=== PATIENT | female | born 1950 | race Caucasian/White ===

== ENCOUNTER → 2016-03-10 | Day surgery (SDC) | payer MEDICARE ==
[~2016-03-10] VITALS: Ht 160 cm; Wt 95.3 kg
[~2016-03-10] MED LIST: AMLODIPINE BESYL5 MG PO; CENTRUM1 TAB PO; CO Q-1050 MG PO; DIOVAN HCT 12.51 TA6 PO; FISH OIL500 MG PO; Lopressor25 MG PO; METFORMIN500 MG PO; OMEPRAZOLE D/R20 MG PO; SYMBICORT1 AER INH; VALSARTAN160 MG PO
--- NOTE | ~2016-03-10 | O ---
[place], [place] OPERATIVE NOTE NAME: ARIELLE MCGOVERN UNIT #: [id number] ROOM: DOCTOR: SATHYA VERDUGO MD BIRTHDATE: [birth year] DOS: GASTROENDOSCOPIC REPORT HISTORY OF PRESENT ILLNESS: The patient is 66-year-old who has presented with chief complaint of epigastric distress, dyspepsia, history of H. pylori positivity, continuing with dyspepsia, despite the fact that she is on omeprazole 20 mg a day. PAST MEDICAL HISTORY: Associated with diabetes mellitus, hypertension, COPD. She was H. pylori positive. She has been treated in the past with clarithromycin, amoxicillin, and Prilosec. PROCEDURE: Today's procedure part of investigation is panendoscopy plus biopsy. PREMEDICATION: Versed and Diprivan. SCOPE: Olympus forward viewing gastroscope Q10 video. REPORT: After putting the patient in the left lateral position and after application of lubricant to the scope, the scope was introduced. Thereafter, under direct visualization, I advanced through the length of esophagus without difficulty. Distal esophagitis, distal esophageal ulcer, and small hiatal hernia. Gastric pouch was entered. Multiple antral erosions identified, photographed, biopsied. Duodenal bulb, second and third part within normal limits. The patient extubated, tolerated procedure well. IMPRESSION: Multi-antral erosion, distal esophageal ulcer, hiatal hernia. PLAN AND DISCUSSION: This patient with past history of H. Pylori, status post clarithromycin, amoxicillin, and PPI therapy, waiting to see if there is repopulation of the H. Pylori. Otherwise if negative, we are going to increase the Prilosec to 20 mg b.i.d. If positive, we are going to modify to other regimen for H. pylori management. At the present time, H. pylori results pending. Thank you very much indeed for your kind referral. [place], [place] OPERATIVE NOTE NAME: ARIELLE MCGOVERN UNIT #: [id number] ROOM: DOCTOR: SATHYA VERDUGO MD BIRTHDATE: [birth year] SATHYA VERDUGO MD CM:OPRECORD:OPERATIVE NOTE [id number] SISSY VERDUGO MD 03/10/16 1149 interface
[2016-03-10 08:13] VITALS: BP 114/59
[2016-03-10 09:00] VITALS: BP 137/81
[2016-03-10 09:15] VITALS: BP 139/77
[2016-03-10 09:30] VITALS: BP 140/83
== END | disposition home or self-care (01) ==
LOC: SDC 03-08 09:30
DX: K29.50 Unspecified chronic gastritis without bleeding (principal); K22.10 Ulcer of esophagus without bleeding; K44.9 Diaphragmatic hernia without obstruction or gangrene; E11.9 Type 2 diabetes mellitus without complications; I10 Essential (primary) hypertension; J44.9 Chronic obstructive pulmonary disease, unspecified; Z83.3 Family history of diabetes mellitus; Z82.3 Family history of stroke

== ENCOUNTER → 2018-03-29 | Day surgery (SDC) | payer MEDICARE ==
[~2018-03-29] VITALS: Ht 160 cm; Wt 93.0 kg
[~2018-03-29] MED LIST changes: +HYOSCYAMINE0.125 MG PO
--- NOTE | ~2018-03-29 | O ---
[place], [place] OPERATIVE NOTE NAME: ARIELLE MCGOVERN UNIT #: [id number] ROOM: DOCTOR: SATHYA VERDUGO MD BIRTHDATE: [birth year] DOS: 03/29/2018 GASTROENDOSCOPIC REPORT HISTORY OF PRESENT ILLNESS: A 68-year-old patient who is presented with chief complaint of change in bowel habit, constipation or diarrhea, gassy distress. ALLERGIES: AMOXICILLIN AND BIAXIN. FAMILY HISTORY: Noncontributory. PAST SURGICAL HISTORY: D and C. SOCIAL HISTORY: Nonsmoker, nonalcohol consumer. PROCEDURE: Today's procedure part of investigation is colonoscopy plus polypectomy, piecemeal at hepatic flexure x 2. PREMEDICATION: Propofol. SCOPE: Olympus forwarding colonoscope 10L video. REPORT: After putting the patient in left lateral position and application of lubricant to the scope, the scope was introduced; thereafter under direct visualization, I advanced through the length of colon without difficulty. Hepatic flexure area was approached. Two sessile small polypoid lesion with piecemeal polypectomy removed. Base of the cecum explored, appendiceal orifice identified, ileocecal valve was defined. Scope was gradually withdrawn from ascending, transverse, descending colon. The patient extubated, tolerated the procedure well. IMPRESSION: Sessile colonic polyp at hepatic flexure, status post 2 piecemeal polypectomies. PLAN ON DISCUSSION: This patient's symptomatology of change in bowel habit, diarrhea, constipation is related to irritable bowel syndrome, hyoscyamine. Therefore, 0.125 mg 1 every day along with high fiber would be tried and clinical reassessment as outpatient. Thank you very much indeed for your kind referral. [place], [place] OPERATIVE NOTE NAME: JC MCGOVERNAINE UNIT #: [id number] ROOM: DOCTOR: SATHYA VERDUGO MD BIRTHDATE: [birth year] SATHYA VERDUGO MD CM:OPRECORD:OPERATIVE NOTE [id number] SATHYA VERDUGO MD 03/30/18 1535 interface
[2018-03-29 07:40] VITALS: BP 128/70
[2018-03-29 09:00] VITALS: BP 111/56
[2018-03-29 09:15] VITALS: BP 111/64
[2018-03-29 09:30] VITALS: BP 125/69
[2018-03-29 09:38] VITALS: BP 108/55
== END | disposition home or self-care (01) ==
LOC: SDC 03-02 08:00
DX: D12.3 Benign neoplasm of transverse colon (principal); I10 Essential (primary) hypertension; J44.9 Chronic obstructive pulmonary disease, unspecified; E11.9 Type 2 diabetes mellitus without complications; M41.9 Scoliosis, unspecified; E66.01 Morbid (severe) obesity due to excess calories; Z68.36 Body mass index [BMI] 36.0-36.9, adult; Z98.890 Other specified postprocedural states; Z88.1 Allergy status to other antibiotic agents; Z79.899 Other long term (current) drug therapy; Z83.3 Family history of diabetes mellitus; Z82.3 Family history of stroke

== ENCOUNTER → 2018-10-23 | Outpatient (CLI) | payer MEDICARE ==
[2018-10-23 10:37] LABS: BASO % 0.6 % (0.0-1.0); EOS # 0.2 10*3/uL (0.0-0.4); EOS % 4.4 % (1.0-4.0); HEMATOCRIT 43.5 % (37.0-47.0); HEMOGLOBIN 13.8 g/dl (12.0-16.0); LYMPH # 1.4 10*3/uL (1.3-4.4); LYMPH % 29.7 % (27.0-41.0); MEAN CORPUSCULAR HGB 26.6 pg (27.0-31.0); MEAN CORPUSCULAR HGB CONC 31.7 g/dl (33.0-37.0); MEAN PLATELET VOLUME 9.8 fl (9.6-12.3); MONO # 0.3 10*3/uL (0.1-1.0); MONO % 7.1 % (3.0-9.0); NEUT # 2.8 10*3/uL (2.3-7.9); NEUT % 57.8 % (47.0-73.0); PLATELET COUNT AUTOMATED 175 10*3/uL (130-400); RED BLOOD COUNT 5.18 10*6/uL (4.10-5.10); RED CELL DISTRI WIDTH 14.5 % (0-14.5); WHITE BLOOD COUNT 4.8 10*3/uL (4.8-10.8)
[2018-10-23 10:59] LABS: ALBUMIN 3.9 gm/dl (3.1-4.5); BILIRUBIN, DIRECT 0.1 mg/dL (0.0-0.2); BUN 20 mg/dl (7-24); CHLORIDE 106 mmol/L (98-107); CHOLESTEROL 222 mg/dL (<200); CREATININE 0.76 mg/dL (0.55-1.02); PHOSPHOROUS 3.4 mg/dL (2.5-4.9); POTASSIUM 4.3 mmol/L (3.5-5.1); SGOT/AST 15 IU/L (3-35); SGPT/ALT 26 U/L (12-78); SODIUM 140 mmol/L (136-145)
[2018-10-23 11:07] LABS: ALKALINE PHOSPHATASE 74 U/L (45-117); HDL CHOLESTEROL 44 mg/dl (40-60); LDL CHOLESTEROL 142 mg/dL (9-159); THYROID STIM HORMONE (HS) 0.886 uIU/ml (0.358-4.75); TOTAL PROTEIN 7.4 gm/dL (6.4-8.2); TRIGLYCERIDES 178 mg/dl (<150); VLDL CHOLESTEROL 36 mg/dL (6-40)
[2018-10-24 12:08] LABS: CREATININE,URINE 124.1 mg/dL (Not Estab.); MICRO ALBUMIN/CRE RATIO 12.3 (0.0-30.0)
== END | disposition home or self-care (01) ==
LOC: LAB 09:47
PROVIDERS: Internal Medicine
DX: E11.9 Type 2 diabetes mellitus without complications (principal); E78.2 Mixed hyperlipidemia; I10 Essential (primary) hypertension; Z79.4 Long term (current) use of insulin

== ENCOUNTER → 2018-11-07 | Outpatient (CLI) | payer MEDICARE | END | disposition home or self-care (01) | LOC: CT 07:40 | DX: R59.9 Enlarged lymph nodes, unspecified (principal); R06.02 Shortness of breath; J98.11 Atelectasis ==

== ENCOUNTER → 2022-11-29 | Outpatient (CLI) | payer MEDICARE | END | disposition home or self-care (01) | LOC: MAMMO 11:30 | PROVIDERS: ATTEND Obstetrics & Gynecology | DX: Z12.31 Encounter for screening mammogram for malignant neoplasm of breast (principal) ==

== ENCOUNTER → 2024-11-22 | Outpatient (CLI) | payer MEDICARE ==
[~2024-11-22] MED LIST changes: +AMLODIPINE BESY10 MG PO; +AVALIDE 300-121 EACH PO; +METFORMIN HYDR500 MG PO; +PANTOPRAZOLE SO40 MG PO; +ROSUVASTATIN CA10 MG PO; +VENT7GM INH; +VITAMIN C500 M8 PO
== END | disposition home or self-care (01) ==
LOC: MAMMO 10:13
PROVIDERS: ATTEND Obstetrics & Gynecology
DX: Z12.31 Encounter for screening mammogram for malignant neoplasm of breast (principal)